=== PATIENT | female | born 1935 | race African-American/Black ===

== ENCOUNTER 2017-04-08 10:29 | Inpatient (IN) ==
--- NOTE | 2017-04-08 11:15 | Emergency Department Note ---
[place] Manpreet, am scribing for, and in the presence of, Rama Parekh DO 11: 04. IIglesia Debra, DO, personally performed the services described in this documentation, ascribed by Dinesh Pulliam in my presence, and it is both accurate and complete . Arrival - Arrival Chief Complaint: Altered Mental Status Stated Complaint: swollen lip weak ED Nursing Triage Note: Generalized weakness osnet x 1 month - lip swelling to top lip onset x 2 weeks - family states that she has been having some confusion at times at home Mode of Arrival: Wheelchair Limitations: No Limitations Source: Guardian (Neighbor), Old Records Reviewed Time Seen by Provider: 04/08/17 10:54 - History of Present Illness HPI Narrative: Pt is a 82 y/o female who is brought to the ED by her neighbor for a CC of a swollen lips due to a possible animal bite since 2 weeks ago. The neighbor is her primary historian and states the Pt has seemed confused and weak for the past 2 weeks. She also states she was told by the pt's nurses that the pt has a heart condition. No other pains/complaints reported to ED. Onset (ago): week(s) Consistency: constant Severity: moderate Severity scale (1-10): 3 Date of Last Menstrual Period: hyster Allergies/Adverse Reactions: Allergies Allergy/AdvReac Type Severity Reaction Status Date / Time No Known Allergies Allergy Unverified 10/02/15 20:25 Home Medications: Home Medications Medication Instructions Recorded Confirmed Type Aspirin EC Tab 81 mg PO DAILY 06/28/15 04/08/17 History Nitroglycerin [Nitromist] 1 spray TRANSLING Q5M PRN #4 gm 03/16/17 04/08/17 Rx Cetirizine HCl [Cetirizine Tab] 10 mg PO DAILY 04/08/17 04/08/17 History Furosemide Tab [Lasix Tab] 20 mg PO DAILY 04/08/17 04/08/17 History LORazepam TAB [Ativan Tab] 1 mg PO BID PRN 04/08/17 04/08/17 History Potassium Chloride 10 meq PO BID 04/08/17 04/08/17 History Tramadol HCl/Acetaminophen 1 each PO Q12H PRN 04/08/17 04/08/17 History [Tramadol-Acetaminophn 37.5-325] diphenhydrAMINE HCl 25 mg PO DAILY PRN 04/08/17 04/08/17 History [diphenhydrAMINE Tab] Review of System - Review of System 12 point system: reviewed and no additional remarkable complaints except as stated - Review of System Constitutional: Present: weakness. Absent: chills, fever Head/Ears/Nose/Throat: Present: other (Bite/Swelling on lips from insect bite) Respiratory: Absent: cough, respiratory distress Cardiovascular: Absent: chest pain, palpitations, dyspnea on exertion Gastrointestinal: Absent: abdominal pain, nausea, vomiting Musculoskeletal: Absent: arm pain, back pain, lower back pain, neck pain Neurological: Present: confusion. Absent: headache, weakness, numbness, paresthesias Medical,Surgical,& Family Hx - Medical History Cardio: History of: Hypertension No history of: CHF, CAD, [place] Psychological: No history of: Anxiety Disorders, Behavior Problems Neurology: No history of: Cerebrovascular Accident Endocrine: No history of: Diabetes Mellitus (IDDM), Diabetes Mellitus (NIDDM) Respiratory: No history of: Asthma, Bronchitis, Pneumonia, Lung Cancer Renal: No history of: Renal Problems Gastrointestinal: No history of: Liver Problems, GI Problems Musculoskeletal: History of: Musculoskeletal Problems (chronic right knee pain) Reproductive: History of: Breast Cancer (LEFT MYSEC) Other: History of: Cancer (BREAST CA) - Surgical History Cardiac Surgeries: Patient Denies: Cardiac Surgery Reproductive Surgeries: Surgical HX of;: Breast Surgery (left mastectomy) Orthopedic Surgeries: Surgical HX of;: Total Hip Replacement (bilateral) - Family History Family History: Reports;: Family Hypertension - Social History Smoking Status: Never smoker Frequency of Alcohol Use: None Type of Drug Use: None Exam Vital Signs: Vital Signs Temperature 99.1 F 04/08/17 11:12 Pulse Rate 70 04/08/17 11:12 Respiratory Rate 20 04/08/17 11:12 Blood Pressure 100/43 04/08/17 11:12 O2 Sat by Pulse Oximetry 97 04/08/17 10:38 - General General appearance: alert - Head Head exam: Present: atraumatic, normocephalic, normal inspection - Eye Eye exam: Present: normal appearance, PERRL, EOMI - ENT ENT exam: Present: normal exam, normal oropharynx, mucous membranes moist, TM's normal bilaterally, other (Swollen erythmatous to lip, Purulent with dime size bite) - Neck Neck exam: Present: normal inspection, full ROM, trachea midline. Absent: tenderness - Chest Chest inspection: Present: normal inspection, symmetric chest wall rise. Absent : tenderness - Respiratory Respiratory exam: Present: normal lung sounds bilaterally. Absent: accessory muscle use, respiratory distress - Cardiovascular Cardiovascular exam: Present: regular rate, normal rhythm, murmur (Systolic murmur ). Absent: normal heart sounds - Abdominal Exam Abdominal exam: Present: soft, normal bowel sounds. Absent: distention, diminished bowel sounds - Extremities Exam Extremities exam: Present: normal inspection, full ROM. Absent: tenderness, calf tenderness - Back Exam Back exam: Present: normal inspection, full ROM. Absent: tenderness - Neurological Exam Neurological exam: Present: alert, oriented X3, CN II-XII intact, reflexes normal - Psychiatric Psychiatric exam: Present: normal affect - Skin Skin exam: Present: warm, dry, intact, normal color. Absent: pallor Course Course Narrative: spoke with hospitalist who will admit pt Results - Labs CBC & BMP: 04/08/17 11:02 04/08/17 11:02 Lab Results: I have reviewed the patients labs Labs: Laboratory Tests 04/08/17 04/08/17 04/08/17 10:54 11:02 11:02 WBC 6.6 RBC 3.67 L Hgb 9.3 L Hct 29.0 L MCV 79.0 L MCH 25 L MPV 9.3 L Neut % (Auto) 74.0 H Lymph % (Auto) 19.4 L Lymph # (Auto) 1.3 L Sodium 139 Potassium 4.3 Chloride 105 Carbon Dioxide 26 Anion Gap 12.3 BUN 53 H Creatinine 3.80 H Total Protein 8.7 H Globulin 5.1 H Albumin/Globulin Ratio 0.7 L Urine pH 5.0 Ur Specific [place] 1.012 Urine Urobilinogen < 2.0 H Urine Leukocytes Small H Urine RBC 3 Urine WBC 4 Hyaline Casts 38 - Diagnostic Findings Procedure: Chest x-ray: report reviewed by me (1. Previous left axillary dissection. 2. Granuloma changes. 3. Arthritic changes of the shoulders with calcific tendinopathy of the rotator cuff on the right.) Disposition Clinical Impression: Dehydration Case discussed with: patient Disposition: Still a Patient Condition: Stable Time of Disposition: 12:24
[2017-04-08 11:23] LABS: Basophils % 0.3 % (0.0-0.8); Eosinophils % 0.2 % (0.00-10.9); Hemoglobin 9.3 GM/DL (12.0-16.0); Immature Granulocytes % 0.3 %; Immature Granulocytes Absolute 0.02 #; Lymphocytes # 1.3 10*3/uL (1.4-4.0); Lymphocytes % 19.4 % (21.3-54.2); Mean Corpuscular HGB Conc 32.1 GM/DL (32-36); Mean Corpuscular Hemoglobin 25 PG (27-34); Mean Platelet Volume 9.3 FL (9.6-12.0); Monocytes # 0.4 10*3/uL (0.11-0.8); Monocytes % 5.8 % (1.7-12.7); Neutrophils # 4.9 10*3/uL (1.4-7.4); Platelet Count 324 T/CUMM (130-400); Red Blood Count 3.67 MC/CUMM (3.8-5.5); Red Cell Distribution Width 15.4 % (9.3-17.3); White Blood Count 6.6 T/CUMM (4-12)
--- NOTE | 2017-04-08 11:27 | XRay Report ---
Exam: XR chest 1V portable Date: 04/08/2017 10:55 AM Indication: Abnormal breath sounds Comparison: 03/16/2017 Technical: AP portable Findings: Previous left axillary dissection. The heart is normal in size. ASVD is present. Arthritic change present over the shoulders with some calcific tendinopathy of the right shoulder present. A few reticular nodular densities present in the suprahilar regions bilaterally extending towards the apices. Lateral marginal osteophytes thoracic spine. Impression: 1. Previous left axillary dissection 2. Granuloma changes 3. Arthritic changes of the shoulders with calcific tendinopathy of the rotator cuff on the right PROCEDURE INTERPRETED AT [facility] DEPARTMENT OF RADIOLOGY Final Report Signed by: Dr. Chas Campos
[2017-04-08 11:28] LABS: Apearance,Urine Slightly Hazy (Clear); Bacteria,Urine Occasional /HPF (Few); Bilirubin,Urine Negative (Negative); Blood, Urine Negative (Negative); Glucose,Urine (UA) Negative (Negative); Hyaline Casts,Urine 38 /LPF (0-3); Ketones,Urine Negative (Negative); Mucus,Urine Occasional /LPF (Occasional); Nitrite,Urine Negative (Negative); Protein,Urine Negative; RBC,Urine 3 /HPF (0-4); Squamous Epithelial Cell,Urine Occasional /HPF (0-10); Urine Color Yellow (Yellow); Urine Specific Gravity 1.012 (1.001-1.035); Urine Urobilinogen < 2.0 EU/DL (0.2-1.0); WBC,Urine 4 /HPF (0-6)
[2017-04-08 11:43] LABS: Albumin 3.6 G/DL (3.4-5.0); Bilirubin,Total 0.4 MG/DL (0.2-1.0); Calcium 9.6 MG/DL (8.5-10.1); Osmolality,Calculated 290.5 MOS/KG (273-304); Potassium 4.3 MMOL/L (3.5-5.1); Total Protein 8.7 G/DL (6.4-8.3)
[2017-04-08 11:45] LABS: Troponin I Only < 0.015 NG/ML (0.00-0.045)
--- NOTE | 2017-04-08 12:01 | CT Report ---
CT head/brain wo con Indication: Confusion. CT BRAIN WITHOUT CONTRAST DLP: 1012 mGy*cm. One or more of the following dose reduction techniques was used: Automated exposure control, adjustment of the mA and/or kV according the patient size, or use of iterative reconstruction techniques. Comparison: 10/24/2014. Date of admission: 04/08/2017. Technique: Axial noncontrast CT images of the brain were obtained. Findings: No acute hemorrhage, mass or mass effect. Significant generalized atrophy and extensive patchy periventricular white matter hypodensity have both progressed since previous exam. Cortical sorensen-white junction is maintained. Basal ganglia structures remain well-defined. No bone lesions. Visualized sinuses are clear. Impression: Progressive generalized atrophy and chronic small vessel ischemic change. No acute intracranial pathology demonstrated. PROCEDURE INTERPRETED AT [facility] DEPARTMENT OF RADIOLOGY Final Report Signed by: Wilson Toney M.D.
[2017-04-08] MEDS ORDERED: cefTRIAXone 1,000 MG in SODIUM CHLORIDE 0.9% 100 ML IV STA (12:02)
[2017-04-08] MEDS ORDERED: SODIUM CHLORIDE 0.9% 1,000 ML IV STA (12:03)
[2017-04-08] MEDS ORDERED: cefTRIAXone 1,000 MG VIAL ONE (12:09)
[2017-04-08 12:58] LABS: Hypochromasia 2+; Microcytosis Slight
[2017-04-08] MEDS ORDERED: ACETAMINOPHEN 325 MG TABLET PO PRN (13:32)
[2017-04-08] MEDS: SODIUM CHLORIDE 0.9% 1,000 ML IV SCH (13:53)
[2017-04-08] MEDS ORDERED: diphenhydrAMINE CAP 25 MG CAPSULE PO PRN (14:00)
--- NOTE | 2017-04-08 14:10 | Hospitalist History & Physical ---
<Jc Serrato - Last Filed: 04/08/17 14:53> Assessment and Plan (1) Dehydration Status: Acute Assessment and plan: Admit to med surg. Start patient on IV fluids. Recheck labs in am. Current Visit: Yes (2) Lip edema Status: Acute Assessment and plan: Lip edema is of unknown etiology. Medications reviewed. Pt. not on anything that would likely cause this. Pt. started on Rocephin. Continue to monitor. Current Visit: Yes (3) JACOBY (acute kidney injury) Status: Acute Assessment and plan: Pt. will be gently hydrated. Recheck labs in am. Avoid nephrotoxic agents. Continue to monitor Current Visit: Yes (4) History of breast cancer Status: Chronic Current Visit: Yes (5) History of hip fracture Status: Chronic Current Visit: Yes History of Present Illness History of present illness: Ms. Tsai is a 82 year old black female with a history of confusion,htn, breast cancer, and hip replacement that was brought into the ED by her neighbor for evaluation of swollen lips. Pt is confused and her neighbor provides most of her history. She states that the patient has been more confused and week over the last 2 weeks. She also states that the patient's lip have been swollen for the past 2 weeks. They are not sure whether or not the patient has come in contact with an insect or been bitten by an animal. She also reports that patient has a child that lives with her but is not active in her care. On examination in the ED, pt noted to have swollen upper lip. Labs unremarkable except for bun/creatinine of 53/3.8. Pt's case has been discussed with Dr. Julien and pt will be admitted for further eval. Home Medications Medication Instructions Recorded Confirmed Type Aspirin EC Tab 81 mg PO DAILY 06/28/15 04/08/17 History Nitroglycerin [Nitromist] 1 spray TRANSLING Q5M PRN #4 gm 03/16/17 04/08/17 Rx Cetirizine HCl [Cetirizine Tab] 10 mg PO DAILY 04/08/17 04/08/17 History Furosemide Tab [Lasix Tab] 20 mg PO DAILY 04/08/17 04/08/17 History LORazepam TAB [Ativan Tab] 1 mg PO BID PRN 04/08/17 04/08/17 History Potassium Chloride 10 meq PO BID 04/08/17 04/08/17 History Tramadol HCl/Acetaminophen 1 each PO Q12H PRN 04/08/17 04/08/17 History [Tramadol-Acetaminophn 37.5-325] diphenhydrAMINE HCl 25 mg PO DAILY PRN 04/08/17 04/08/17 History [diphenhydrAMINE Tab] Allergies Allergy/AdvReac Type Severity Reaction Status Date / Time No Known Allergies Allergy Unverified 10/02/15 20:25 Medical,Surgical,& Family Hx - Medical History Cardio: History of: Hypertension No history of: CHF, CAD, [place] Psychological: No history of: Anxiety Disorders, Behavior Problems Neurology: No history of: Cerebrovascular Accident Endocrine: No history of: Diabetes Mellitus (IDDM), Diabetes Mellitus (NIDDM) Respiratory: No history of: Asthma, Bronchitis, Pneumonia, Lung Cancer Renal: No history of: Renal Problems Gastrointestinal: No history of: Liver Problems, GI Problems Musculoskeletal: History of: Musculoskeletal Problems (chronic right knee pain) 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 Absent: fever(s) - EENT Eyes: Present: loss of vision, requires corrective lense Ears: Present: decreased hearing Nose, mouth and throat: Present: lip swelling. Absent: headache(s) - Cardiovascular Cardiovascular: Absent: chest pain at rest, dyspnea, edema - Gastrointestinal Gastrointestinal: Absent: abdominal pain, nausea, vomiting - Neurological Neurological: Present: confusion Exam - Constitutional Vitals: Period Temp Pulse Resp BP Sys/Ferrell Pulse Ox Last 24 Hr 99.1 F-99.1 F 62-70 16-20 100-105/39-47 97-100 General appearance: no acute distress, under weight - Head Head exam: Present: normal inspection, normocephalic, other (pt. has swelling to upper lip.) - Eye Eye exam: Present: EOMI. Absent: scleral icterus Pupils: Present: SUKHJINDER. Absent: dilated - Respiratory Respiratory exam: Present: clear to auscultation bilaterally. Absent: wheezes - Cardiovascular Cardiovascular exam: Present: regular rate and rhythm - GI/Abdominal GI/Abdominal exam: Present: normal bowel sounds, soft. Absent: tenderness - Extremities Exam Extremities exam: Present: normal capillary refill. Absent: edema - Neurological Exam Neurological exam: Present: alert. Absent: oriented X3 - Psychiatric Psychiatric exam: Present: normal affect, normal mood - Skin Skin exam: Present: normal color, warm, dry Results - Labs CBC & BMP: 04/08/17 11:02 04/08/17 11:02 Lab Results: I have reviewed the past 24 hour labs <Arielle Julien - Last Filed: 04/08/17 17:10> History of Present Illness Chief complaint: lip swelling History of present illness: Patient seen and examined along with CLINICAL LAW PROFESSOR Serrato, agree with history, assessment and plan as documented. 82 y/o AAF who was brought in by her neighbor due to concern for lip swelling and increasing altered mental status. Patient is oriented to person and city but not time. Her neighbor reports that the lip swelling has been going on for 2 weeks and the confusion has been intermittent for a long time, gradually worsening. One of her daughters lives with her, but according to the neighbor she is hardly ever there. The patient is responsible for her own meals. I spoke to patient's daughter this evening and she is unsure about the patient's medical history and reports that the confusion is completely new. She was unsure if the patient is on home health or hospice. The hospice company called the hospital and spoke to the nursing staff, she is on hospice, someone comes to her house 5x per week. They report that she has very poor living conditions and would benefit from placement. CT head without acute process, no leukocytosis UA with small leukocytes Will start rocephin Creatinine elevated, will gently hydrate check tsh, b12 and folate Medications were reviewed, hospice company also to fax a mediation list. Exam - Constitutional Vitals: Period Temp Pulse Resp BP Sys/Ferrell Pulse Ox Last 24 Hr 97.8 F-99.1 F 62-70 16-20 100-129/39-48 96-100 Results - Labs CBC & BMP: 04/08/17 11:02 04/08/17 11:02
[2017-04-08] MEDS ORDERED: cefTRIAXone 1,000 MG in SODIUM CHLORIDE 0.9% 100 ML IV SCH (21:00)
[2017-04-08] MEDS: ENOXAPARIN 30 MG/0.3 ML SYRINGE SUBCUT SCH (23:53)
[2017-04-09] MEDS: SODIUM CHLORIDE 0.9% 1,000 ML IV SCH ×2 (03:32→19:30)
[2017-04-09 06:24] LABS: Basophils % 0.2 % (0.0-0.8); Eosinophils % 0.6 % (0.00-10.9); Hematocrit 24.5 VOL% (35.7-47.0); Immature Granulocytes % 0.4 %; Immature Granulocytes Absolute 0.02 #; Lymphocytes # 1.8 10*3/uL (1.4-4.0); Lymphocytes % 34.2 % (21.3-54.2); Mean Corpuscular HGB Conc 32.7 GM/DL (32-36); Mean Corpuscular Hemoglobin 26 PG (27-34); Mean Corpuscular Volume 78.3 FL (87-102); Mean Platelet Volume 9.3 FL (9.6-12.0); Monocytes # 0.5 10*3/uL (0.11-0.8); Monocytes % 8.7 % (1.7-12.7); Neutrophils % 55.9 % (38.7-73.9); Platelet Count 265 T/CUMM (130-400); Red Blood Count 3.13 MC/CUMM (3.8-5.5); Red Cell Distribution Width 15.4 % (9.3-17.3); White Blood Count 5.3 T/CUMM (4-12)
[2017-04-09 06:44] LABS: Calcium 8.9 MG/DL (8.5-10.1); Magnesium 2.6 MG/DL (1.8-2.4); Osmolality,Calculated 295.7 MOS/KG (273-304); Potassium 3.8 MMOL/L (3.5-5.1); Risk Ratio 4.73; Thyroid Stimulating Hormone 0.554 uIU/ml (0.358-3.74); VLDL CHOLESTEROL 12.2 MG/DL
[2017-04-09 07:00] LABS: Folate > 24.0 NG/ML (5.4-24.0); Vitamin B12 430 PG/ML (211-911)
--- NOTE | 2017-04-09 08:28 | Physician Query Form ---
CLICK EDIT DOCUMENT TO SELECT QUERY ANSWER --> OK --> SIGN Barb Olson RN, CCDS Certified Clinical [employer] Counter Assistant W) [phone] (f) [phone] [email or web address] PROVIDERS: Make your selection(s) from the choices in EACH section by typing an "x" and enter comments in the comment section. Please use your independent medical judgment in providing your response. This request does not imply that any particular answer is desired or expected. CLINICAL INDICATORS: (Providers should not edit this section) The medical record indicates that the patient was admitted with dehydration, AMS , confusion over the last 1-2 weeks, "confusion is completely new" and the patient had a CT of the brain. ACUITY: ( ) Acute (x ) Acute on Chronic ( ) Chronic ( ) Clinically unable to determine NATURE: ( x) Delirium due to general medical condition ( ) Dementia ( ) Encephalopathy ( ) Unconscious ( ) Transient level of awareness ( ) Comatose ( ) Locked-in State ( ) Persistent Vegetative State ( ) Other, please specify: ( ) Clinically unable to determine Please indicate the underlying cause of the altered mental status (CHECK ALL THAT APPLY): ( ) Baseline dementia ( ) Alzheimer's disease ( ) Parkinson's disease ( ) Lewy body dementia ( ) Acute stroke ( ) Late effect of stroke ( ) Reactive (from emotional stress, psychological trauma) ( ) Due to narcotics/other drugs ( ) Post procedural delirium ( ) Transient ischemic attack ( ) Generalized cerebral edema ( ) Normal pressure hydrocephalus ( ) Psychiatric illness ( ) Other, please specify: ( ) Clinically unable to determine Please indicate if there is an infection, sepsis, dehydration or specific organ failure that is causing the dementia. Be specific with clarifying the relationship between that process and the mental status change. COMMENTS: PLEASE ALSO DOCUMENT RESPONSE IN PROGRESS NOTES AND/OR DISCHARGE SUMMARY Use of terms such as suspected, likely, or probable (associated with a specific diagnosis that is being evaluated, monitored, or treated as if it exists) are acceptable and can be restated in the discharge summary if not ruled out. MTDD
[2017-04-09] MEDS: cefTRIAXone 1,000 MG in SODIUM CHLORIDE 0.9% 100 ML IV SCH (09:51)
[2017-04-09] MEDS: CETIRIZINE 10 MG TABLET PO SCH (09:51)
[2017-04-09] MEDS: ASPIRIN EC 81 MG TABLET PO SCH (09:52)
--- NOTE | 2017-04-09 13:35 | Hospitalist Progress Note ---
Assessment and Plan (1) Dehydration Status: Acute Assessment and plan: Improving with IV fluids Current Visit: Yes (2) Lip edema Status: Acute Assessment and plan: Possibly some type of bug bite Looks better today Wound culture sent from aspiration Current Visit: Yes (3) JACOBY (acute kidney injury) Status: Acute Assessment and plan: Secondary to dehydration Creatinine is better today Continue IV fluids Current Visit: Yes Hospitalist: Subjective Interval history: No acute events overnight. Patient denies any pain this morning. Her nurse was able to express pus from her lip this morning. Exam - Constitutional Vitals: Period Temp Pulse Resp BP Sys/Ferrell Pulse Ox Last 24 Hr 96.5 F-99.4 F 60-87 18-20 126-146/48-72 93-100 General appearance: under weight - Head Head exam: Present: normocephalic, atraumatic - Eye Eye exam: Present: EOMI Pupils: Present: SUKHJINDER - ENT ENT exam: Present: normal exam - Neck Neck exam: Present: normal inspection - Respiratory Respiratory exam: Present: clear to auscultation bilaterally. Absent: rhonchi, wheezes - Cardiovascular Cardiovascular exam: Present: regular rate and rhythm - GI/Abdominal GI/Abdominal exam: Present: normal bowel sounds - Extremities Exam Extremities exam: Present: normal inspection - Back Exam Back exam: Present: normal inspection - Neurological Exam Neurological exam: Present: alert - Psychiatric Psychiatric exam: Present: normal affect, normal mood - Skin Skin exam: Present: warm, intact Results - Labs CBC & BMP: 04/09/17 05:28 04/09/17 05:28 Quality Measures - Stroke Symptom Onset Unknown: No
[2017-04-09] MEDS: ENOXAPARIN 30 MG/0.3 ML SYRINGE SUBCUT SCH (20:28)
[2017-04-10 04:17] LABS: Basophils % 0.6 % (0.0-0.8); Eosinophils # 0.1 10*3/uL (0.0-0.87); Eosinophils % 2.2 % (0.00-10.9); Hematocrit 24.5 VOL% (35.7-47.0); Hemoglobin 7.7 GM/DL (12.0-16.0); Immature Granulocytes % 0.3 %; Immature Granulocytes Absolute 0.01 #; Lymphocytes # 1.7 10*3/uL (1.4-4.0); Lymphocytes % 52.8 % (21.3-54.2); Mean Corpuscular HGB Conc 31.4 GM/DL (32-36); Mean Corpuscular Hemoglobin 25 PG (27-34); Mean Corpuscular Volume 80.1 FL (87-102); Mean Platelet Volume 9.3 FL (9.6-12.0); Monocytes # 0.4 10*3/uL (0.11-0.8); Monocytes % 11.8 % (1.7-12.7); Neutrophils % 32.3 % (38.7-73.9); Platelet Count 260 T/CUMM (130-400); Red Blood Count 3.06 MC/CUMM (3.8-5.5); Red Cell Distribution Width 15.5 % (9.3-17.3); White Blood Count 3.2 T/CUMM (4-12)
[2017-04-10 04:44] LABS: Magnesium 2.1 MG/DL (1.8-2.4); Osmolality,Calculated 291.7 MOS/KG (273-304); Potassium 3.9 MMOL/L (3.5-5.1)
[2017-04-10 05:01] LABS: Eosinophils 2 % (0-10); Lymphocytes 55 % (20-55); Myelocytes 4 %; Segmented Neutrophils 37 % (50-85); Total Cells Counted 100
[2017-04-10 05:02] LABS: Anisocytosis 1+; Hypochromasia 1+; Platelet Estimate Normal
[2017-04-10] MEDS: SODIUM CHLORIDE 0.9% 1,000 ML IV SCH ×2 (06:10→19:50)
[2017-04-10] MEDS: cefTRIAXone 1,000 MG in SODIUM CHLORIDE 0.9% 100 ML IV SCH (08:38)
[2017-04-10] MEDS: CETIRIZINE 10 MG TABLET PO SCH (08:41)
[2017-04-10] MEDS: ASPIRIN EC 81 MG TABLET PO SCH (08:41)
--- NOTE | 2017-04-10 14:35 | Hospitalist Progress Note ---
Assessment and Plan (1) Dehydration Status: Acute Assessment and plan: Improving with IV fluids Current Visit: Yes (2) Lip edema Status: Acute Assessment and plan: Possibly some type of bug bite Looks better today Wound culture growing gram positive cocci Current Visit: Yes (3) JACOBY (acute kidney injury) Status: Acute Assessment and plan: Secondary to dehydration Creatinine is better today Continue IV fluids Current Visit: Yes Hospitalist: Subjective Interval history: No acute events overnight. Patient reports that she might feel better. Exam - Constitutional Vitals: Period Temp Pulse Resp BP Sys/Ferrell Pulse Ox Last 24 Hr 97.2 F-98.9 F 48-61 18-20 131-152/49-77 97-100 General appearance: under weight - Head Head exam: Present: normocephalic, atraumatic - Eye Eye exam: Present: EOMI Pupils: Present: SUKHJINDER - ENT ENT exam: Present: normal exam - Neck Neck exam: Present: normal inspection - Respiratory Respiratory exam: Present: clear to auscultation bilaterally - Cardiovascular Cardiovascular exam: Present: regular rate and rhythm - GI/Abdominal GI/Abdominal exam: Present: normal bowel sounds, soft. Absent: tenderness, rebound - Extremities Exam Extremities exam: Present: normal inspection - Back Exam Back exam: Present: normal inspection - Neurological Exam Neurological exam: Present: alert - Psychiatric Psychiatric exam: Present: normal affect, normal mood - Skin Skin exam: Present: warm, intact Results - Labs CBC & BMP: 04/10/17 03:35 04/10/17 03:35 Quality Measures - Stroke Symptom Onset Unknown: No
[2017-04-10] MEDS: ENOXAPARIN 30 MG/0.3 ML SYRINGE SUBCUT SCH (20:18)
[2017-04-11 05:15] LABS: Basophils % 0.7 % (0.0-0.8); Eosinophils # 0.1 10*3/uL (0.0-0.87); Eosinophils % 3.3 % (0.00-10.9); Hematocrit 25.5 VOL% (35.7-47.0); Hemoglobin 7.8 GM/DL (12.0-16.0); Immature Granulocytes % 0.3 %; Immature Granulocytes Absolute 0.01 #; Lymphocytes # 1.8 10*3/uL (1.4-4.0); Lymphocytes % 58.7 % (21.3-54.2); Mean Corpuscular HGB Conc 30.6 GM/DL (32-36); Mean Corpuscular Hemoglobin 25 PG (27-34); Mean Platelet Volume 9.6 FL (9.6-12.0); Monocytes # 0.3 10*3/uL (0.11-0.8); Neutrophils # 0.8 10*3/uL (1.4-7.4); Platelet Count 294 T/CUMM (130-400); Red Blood Count 3.15 MC/CUMM (3.8-5.5); Red Cell Distribution Width 15.6 % (9.3-17.3)
[2017-04-11 05:39] LABS: Magnesium 1.7 MG/DL (1.8-2.4); Osmolality,Calculated 286.7 MOS/KG (273-304); Potassium 4.2 MMOL/L (3.5-5.1)
[2017-04-11 06:20] LABS: Eosinophils 1 % (0-10); Lymphocytes 54 % (20-55); Platelet Estimate Normal; Segmented Neutrophils 38 % (50-85); Total Cells Counted 100
[2017-04-11] MEDS: cefTRIAXone 1,000 MG in SODIUM CHLORIDE 0.9% 100 ML IV SCH (09:30)
[2017-04-11] MEDS: SODIUM CHLORIDE 0.9% 1,000 ML IV SCH ×2 (09:30→23:30)
[2017-04-11] MEDS: CETIRIZINE 10 MG TABLET PO SCH (09:31)
[2017-04-11] MEDS: ASPIRIN EC 81 MG TABLET PO SCH (09:31)
--- NOTE | 2017-04-11 13:09 | Hospitalist Progress Note ---
Assessment and Plan (1) Dehydration Status: Acute Assessment and plan: Improving with IV fluids Current Visit: Yes (2) Lip edema Status: Acute Assessment and plan: Possibly some type of bug bite Looks better today s/p bedside drainage Wound culture growing gram positive cocci Current Visit: Yes (3) JACOBY (acute kidney injury) Status: Acute Assessment and plan: Secondary to dehydration Creatinine is better today Continue IV fluids Current Visit: Yes Hospitalist: Subjective Interval history: No acute events overnight. Reports that her lip feels much better. Exam - Constitutional Vitals: Period Temp Pulse Resp BP Sys/Ferrell Pulse Ox Last 24 Hr 97.3 F-97.7 F 56-61 18-20 136-158/56-74 98-100 General appearance: under weight - Head Head exam: Present: normocephalic, atraumatic - Eye Eye exam: Present: EOMI Pupils: Present: SUKHJINDER - ENT ENT exam: Present: normal exam - Neck Neck exam: Present: normal inspection - Respiratory Respiratory exam: Present: clear to auscultation bilaterally. Absent: rhonchi, wheezes - Cardiovascular Cardiovascular exam: Present: regular rate and rhythm - GI/Abdominal GI/Abdominal exam: Present: normal bowel sounds, soft. Absent: tenderness, rebound - Extremities Exam Extremities exam: Present: normal inspection - Back Exam Back exam: Present: normal inspection - Neurological Exam Neurological exam: Present: alert - Psychiatric Psychiatric exam: Present: normal affect, normal mood - Skin Skin exam: Present: warm, intact Results - Labs CBC & BMP: 04/11/17 03:20 04/11/17 03:20 Quality Measures - Stroke Symptom Onset Unknown: No
[2017-04-11] MEDS: ENOXAPARIN 30 MG/0.3 ML SYRINGE SUBCUT SCH (20:56)
[2017-04-12 06:13] LABS: Basophils % 0.9 % (0.0-0.8); Eosinophils # 0.1 10*3/uL (0.0-0.87); Eosinophils % 2.3 % (0.00-10.9); Hematocrit 27.2 VOL% (35.7-47.0); Hemoglobin 8.6 GM/DL (12.0-16.0); Lymphocytes % 57.9 % (21.3-54.2); Mean Corpuscular HGB Conc 31.6 GM/DL (32-36); Mean Corpuscular Hemoglobin 25 PG (27-34); Mean Corpuscular Volume 79.5 FL (87-102); Monocytes # 0.2 10*3/uL (0.11-0.8); Monocytes % 6.3 % (1.7-12.7); Neutrophils # 1.1 10*3/uL (1.4-7.4); Neutrophils % 32.6 % (38.7-73.9); Platelet Count 298 T/CUMM (130-400); Red Blood Count 3.42 MC/CUMM (3.8-5.5); Red Cell Distribution Width 15.6 % (9.3-17.3); White Blood Count 3.5 T/CUMM (4-12)
[2017-04-12 06:49] LABS: Calcium 8.4 MG/DL (8.5-10.1); Magnesium 1.6 MG/DL (1.8-2.4); Osmolality,Calculated 287.6 MOS/KG (273-304); Potassium 4.3 MMOL/L (3.5-5.1)
[2017-04-12 07:12] LABS: Eosinophils 1 % (0-10); Hypochromasia Slight; Lymphocytes 44 % (20-55); Platelet Estimate Adequate; Segmented Neutrophils 46 % (50-85); Total Cells Counted 100
[2017-04-12] MEDS: ASPIRIN EC 81 MG TABLET PO SCH (08:31)
[2017-04-12] MEDS: SULFAMETHOX/TRIMETHOPRIM 800-160 MG TABLET PO SCH ×2 (08:31→21:24)
[2017-04-12] MEDS: CETIRIZINE 10 MG TABLET PO SCH (08:31)
--- NOTE | 2017-04-12 08:54 | Case Mgmt Physician Query Form ---
TB Signs and Symptoms Screening ([place]) INSTRUCTIONS: To be completed annually on residents/staff with a significant Tuberculin Skin Test (TST) upon admission/hire or a prior significant TST. To be completed on all staff at hire. Please respond to each listed symptom with an (X) in either the "YES" or "NO" box. Do you currently have any of the following symptoms: YES NO ( ) ( x) A cough If yes, is it: ( ) Productive ( ) Non- productive ( ) ( x) Hemoptysis (spitting up blood) ( ) ( x) Chest pains ( ) ( x) Weight Loss ( ) ( x) Fever ( ) ( x) Night Sweats ( ) ( x) Weakness ( ) ( x) Loss of Appetite ( ) ( x) Difficulty Breathing If you answered YES" to any of the above questions, how long have symptoms been present? Comments: [place]
--- NOTE | 2017-04-12 12:11 | Hospitalist Progress Note ---
Assessment and Plan (1) Dehydration Status: Resolved Assessment and plan: Improved with IV fluids Current Visit: Yes (2) Lip edema Status: Acute Assessment and plan: Possibly some type of bug bite Looks better today s/p bedside drainage Wound culture grew MRSA Bactrim Current Visit: Yes (3) JACOBY (acute kidney injury) Status: Acute Assessment and plan: Secondary to dehydration Resolved Discontinue IV fluids Current Visit: Yes Hospitalist: Subjective Interval history: No acute events overnight. Patient states that she feels ok. Working on placement Exam - Constitutional Vitals: Period Temp Pulse Resp BP Sys/Ferrell Pulse Ox Last 24 Hr 96.3 F-98.3 F 53-60 18-20 153-183/67-96 98-100 General appearance: under weight - Head Head exam: Present: normocephalic, atraumatic - Eye Eye exam: Present: EOMI Pupils: Present: SUKHJINDER - ENT ENT exam: Present: normal exam - Neck Neck exam: Present: normal inspection. Absent: tenderness - Respiratory Respiratory exam: Present: clear to auscultation bilaterally - Cardiovascular Cardiovascular exam: Present: regular rate and rhythm - GI/Abdominal GI/Abdominal exam: Present: normal bowel sounds, soft. Absent: tenderness, rebound - Extremities Exam Extremities exam: Present: normal inspection - Back Exam Back exam: Present: normal inspection - Neurological Exam Neurological exam: Present: alert, oriented X3 - Psychiatric Psychiatric exam: Present: normal affect, normal mood - Skin Skin exam: Present: warm, intact Results - Labs CBC & BMP: 04/12/17 05:59 04/12/17 05:59 Quality Measures - Stroke Symptom Onset Unknown: No
[2017-04-12] MEDS: MAGNESIUM OXIDE 400 MG TABLET PO SCH (15:25)
[2017-04-12] MEDS: ENOXAPARIN 30 MG/0.3 ML SYRINGE SUBCUT SCH (21:24)
[2017-04-13] MEDS: MAGNESIUM OXIDE 400 MG TABLET PO SCH (09:03)
[2017-04-13] MEDS: ASPIRIN EC 81 MG TABLET PO SCH (09:03)
[2017-04-13] MEDS: CETIRIZINE 10 MG TABLET PO SCH (09:03)
[2017-04-13] MEDS: SULFAMETHOX/TRIMETHOPRIM 800-160 MG TABLET PO SCH (09:03)
[2017-04-13 11:30] VITALS: BP 159/75
--- NOTE | 2017-04-13 13:22 | Discharge Summary ---
Hospital Course - Hospital Course Hospital Course: Ms. Tsai is a 82 year old black female with a history of htn, breast cancer, and hip replacement that was brought into the ED by her neighbor for evaluation of swollen lips. Pt is confused and her neighbor provided most of her history. She stated that the patient has been more confused over the last 2 weeks. She also stated that the patient's lip have been swollen for the past 2 weeks. They are not sure whether or not the patient has come in contact with an insect or been bitten by an animal. She also reports that patient has a child that lives with her but is not active in her care. She is currently in the care of a home hospice agency. She was admitted to the hospitalist service for dehydration, acute kidney injury and lip abscess. She hydrated with IV fluids, her acute kidney injury and dehydration resolved without incident. Lip abscess with bedside I&D, wound culture grew MRSA. Antibiotics changed appropriately. It was felt that the patient would benefit greatly from rehab vs residential placement, she adamantly refused both. She has now reached maximal benefit of inpatient stay and will be discharged home with home hospice services. - Time spent with patient Time with patient DS: Less than 30 minutes (25) Diagnosis - Discharge Diagnosis (1) Dehydration Status: Resolved (2) Lip edema Status: Resolved (3) JACOBY (acute kidney injury) Status: Resolved Discharge Plan - Discharge Data Disposition: Hospice - Home Condition at Discharge: Stable Discharge Diet: advance to your usual diet Activity: increase activity as tolerated Hygiene: no restrictions Weight Bearing at Discharge: weight bear as tolerated - Discharge Medications New Valsartan 160 mg PO DAILY #30 tablet Doxycycline Hyclate Cap [Vibramycin Cap] 100 mg PO BID #10 capsule Continue Aspirin EC Tab 81 mg PO DAILY Nitroglycerin [Nitromist] 1 spray TRANSLING Q5M PRN #4 gm PRN Reason: Chest Pain Cetirizine HCl [Cetirizine Tab] 10 mg PO DAILY HYDROcodone/ACETAMIN 5-325 [[place] 5-325] 1 tablet PO Q4-6H PRN PRN Reason: Pain Tramadol HCl/Acetaminophen [Tramadol-Acetaminophn 37.5-325] 1 each PO Q12H PRN PRN Reason: Pain Fluticasone Propionate [Flonase Allergy Relief] 2 spray BOTH NARES DAILY Discontinued Potassium Chloride 10 meq PO BID LORazepam TAB [Ativan Tab] 1 mg PO BID PRN PRN Reason: Anxiety Furosemide Tab [Lasix Tab] 20 mg PO DAILY Valsartan/Hctz 160-12.5 [Diovan Hct 160-12.5] 1 tablet PO DAILY Montelukast Tab [Singulair Tab] 10 mg PO DAILY - Follow Up or Referral - Forms/Instructions Exam - Constitutional Vitals: Period Temp Pulse Resp BP Sys/Ferrell Pulse Ox Last 24 Hr 98.3 F-98.9 F 55-72 18-20 154-161/68-86 98-100 General appearance: under weight - Head Head exam: Present: normocephalic, atraumatic - Eye Eye exam: Present: EOMI Pupils: Present: SUKHJINDER - ENT ENT exam: Present: normal exam - Neck Neck exam: Present: normal inspection - Respiratory Respiratory exam: Present: clear to auscultation bilaterally. Absent: rhonchi, wheezes - Cardiovascular Cardiovascular exam: Present: regular rate and rhythm - GI/Abdominal GI/Abdominal exam: Present: normal bowel sounds, soft. Absent: mass, tenderness - Extremities Exam Extremities exam: Present: normal inspection - Back Exam Back exam: Present: normal inspection - Neurological Exam Neurological exam: Present: alert, oriented X3 - Psychiatric Psychiatric exam: Present: normal affect, normal mood - Skin Skin exam: Present: warm, intact DS: Provider Date of admission: 04/08/17 12:22 Primary care physician: . No PCP Attending physician on admission: Arielle Julien MD Consults: 04/08/17 13:32 Consult to Dietitian [CONS] Routine Reason for Dietitian: Dietary Consult Coumadin Education Consult to Pharmacy [CONS] Routine Reason for Pharmacy Consult: Adjust Meds Renal Funct 04/08/17 13:42 Consult to Dietitian [CONS] Routine Reason for Dietitian: Dietary Consult 04/08/17 14:55 Consult to Occupational Therapy [CONS] Routine Reason for Occupational Therapy: Evaluate and Treat Consult to Physical Therapy [CONS] Routine Reason for Physical Therapy: Evaluate and Treat Discharging clinician: Arielle Julien MD
== END 2017-04-13 16:20 | disposition hospice, home (50) | DRG 683 ==
LOC: N.ED 10:29 → N.EDINP 11:13 → N.2E 13:32
PROVIDERS: ADMIT Internal Medicine; ATTEND Internal Medicine